=== PATIENT | male | born 1995 | race Caucasian/White ===

== ENCOUNTER 2017-12-23 12:30 | Emergency (ER) | payer SELFPAY ==
[~2017-12-23] VITALS: Ht 185.4 cm; Wt 66.2 kg
[2017-12-23 12:49] VITALS: BP 119/75; PULSE 96; RESP 16; TEMP 98.4; O2SAT 99
--- NOTE | 2017-12-23 14:03 | PD ---
HPI Chief Complaint: Complaint Time Seen by Provider: 13:54 Travel History International Travel<30 days: No Contact w/Intl Traveler<30days: No Traveled to known affect area: No History of Present Illness HPI 22-year-old male presents emergency department complaining of left testicular pain that started yesterday. Says that he worked all day, came home and stepped the garage door and is stooping motion and felt a sensation in his left testicle. At this point, says that the testicle feels aching that increases with movement decreases with rest. Says he feels like there is spaghetti and the left testicle and he noticed a bump in the area as well. He says that the pain is located mainly left testicle but occasionally radiates up the left pelvic region patient says he sexually active with one partner in the last month. He denies urinary discomfort. Denies abdominal pain. Denies nausea vomiting or diarrhea. Denies chronic medical issues medication use. Of note, patient says that he was evaluated by urgent care last week and given antibiotic. Says that he has never had an ultrasound of his testicles. Says he has chronic pain and discomfort but again has never been evaluated by urologist or with imaging studies. [facility] Past Medical History Medical History: Denies Significant Hx Diminished Hearing: No Influenza Vaccination: No ?: Not Past Surgical History Surgical History: No Previous Surgery Social History Alcohol Use: Yes Tobacco Use: Yes Allergies-Medications (Allergen,Severity, Reaction): Coded Allergies: No Known Allergies (Unverified , 12/23/17) Reported Meds & Prescriptions Reported Meds & Active Scripts Active No Active Prescriptions or Reported Medications Review of Systems Except as stated in HPI: all other systems reviewed are Neg Physical Exam Narrative GENERAL: Well-developed well-nourished in no apparent distress SKIN: Focused skin assessment warm/dry. HEAD: Atraumatic. Normocephalic. EYES: Pupils equal and round. No scleral icterus. No injection or drainage. ENT: No nasal bleeding or discharge. Mucous membranes pink and moist. NECK: Trachea midline. No JVD. CARDIOVASCULAR: Regular rate and rhythm. No murmur appreciated. RESPIRATORY: No accessory muscle use. Clear to auscultation. Breath sounds equal bilaterally. GASTROINTESTINAL: Abdomen soft, non-tender, nondistended. Hepatic and splenic margins not palpable. exam performed with nurse GENITOURINARY: Circumcised. Testes descended bilaterally without evidence of rotation. No lesions or erythema. No urethral discharge. MUSCULOSKELETAL: No obvious deformities. No clubbing. No cyanosis. No edema. NEUROLOGICAL: Awake and alert. No obvious cranial nerve deficits. Motor grossly within normal limits. Normal speech. PSYCHIATRIC: Appropriate mood and affect; insight and judgment normal. Data Data Last Documented VS Vital Signs Date Time Temp Pulse Resp B/P (MAP) Pulse Ox O2 Delivery O2 Flow Rate FiO2 12/23/17 16:05 68 16 110/74 (86) 98 Room Air 12/23/17 12:49 98.4 Orders Orders Urinalysis - C+S If Indicated (12/23/17 13:14) Us Testicles W Doppler (12/23/17 ) Labs Laboratory Tests Test 12/23/17 14:35 Urine Collection Type CLEAN CATCH Urine Color YELLOW Urine Turbidity CLEAR Urine pH 7.5 Urine Specific Millen 1.015 Urine Protein NEG mg/dL Urine Glucose (UA) NEG mg/dL Urine Ketones NEG mg/dL Urine Occult Blood NEG Urine Nitrite NEG Urine Bilirubin NEG Urine Urobilinogen 0.2 MG/DL Urine Leukocyte Esterase NEG Urine Squamous Epithelial Cells 0-5 /hpf Urine Amorphous Sediment MOD Microscopic Urinalysis Comment CULT NOT INDICATED Urine Collection Time 1435 MDM Medical Decision Making Medical Screen Exam Complete: Yes Emergency Medical Condition: Yes Differential Diagnosis Left testicular hydrocele, varicocele, epididymitis, urethritis Narrative Course 22-year-old male presents emergency department complaining of left testicular pain that started yesterday. Says that he worked all day, came home and stepped the garage door and is stooping motion and felt a sensation in his left testicle. At this point, says that the testicle feels aching that increases with movement decreases with rest. Says he feels like there is spaghetti and the left testicle and he noticed a bump in the area as well. He says that the pain is located mainly left testicle but occasionally radiates up the left pelvic region patient says he sexually active with one partner in the last month. He denies urinary discomfort. Denies abdominal pain. Denies nausea vomiting or diarrhea. Denies chronic medical issues medication use. Of note, patient says that he was evaluated by urgent care last week and given antibiotic. Says that he has never had an ultrasound of his testicles. Says he has chronic pain and discomfort but again has never been evaluated by urologist or with imaging studies. Vital signs are stable. US negative. The exam findings demonstrate asymmetric testicles in terms of color and anatomy. I believe this patient could benefit from a testicular ultrasound to rule out emergent condition such as epididymitis. Last Impressions Scrotum Ultrasound 12/23/17 0000 Signed Impressions: CONCLUSION: 1. No acute finding is identified to explain the testicular pain. 2. Bilateral testicular microlithiasis is present without intratesticular mass or other worrisome features. In the absence of any other risk factors for test icular cancer (personal history of testicular cancer, father and brother with t esticular cancer, history of cryptorchidism or maldescent, or other risk factor s) no further imaging follow-up is specifically recommended. However, consider monthly testicular self examination. If any risk factors are present consider u rology referral. Patient is strongly advised to follow-up with his primary care physician and urologist. As mentioned in the report, recommend monthly testicular examinations. He states understanding and will comply. Diagnosis Primary Impression: Testicular pain Referrals: Maverick Samson DO Primary Care Physician Urologist Additional Instructions: Follow-up with urologist as discussed. Follow-up with primary care physician as soon as possible. If your symptoms worsen return to the emergency department immediately. Scripts No Active Prescriptions or Reported Meds Disposition: 01 DISCHARGE HOME Condition: Stable Lori Lopez December 23, 2017 14:03
[2017-12-23 14:49] LABS: BILIRUBIN, URINE NEG (NEG); BLOOD, URINE NEG (NEG); GLUCOSE,URINE NEG (NEG); KETONE, URINE NEG (NEG); NITRITE,URINE NEG (NEG); PH, URINE 7.5 (5.0-8.5); URINE COLOR YELLOW (YELLW/STRAW); URINE LEUKOCYTE ESTERASE NEG (NEG)
[2017-12-23 15:12] LABS: AMORPHOUS SEDIMENT, URINE MOD; SQUAMOUS EPITHELIAL CELL URINE 0-5 /hpf (0-5)
[2017-12-23 16:05] VITALS: BP 110/74; PULSE 68; RESP 16; O2SAT 98
--- NOTE | 2017-12-23 16:12 | RADRPT ---
EXAM DATE: 12/23/2017 3:30 PM EDT AGE/SEX: 22 years / Male INDICATIONS: Testicular pain. CLINICAL DATA: This is the patient's initial encounter. Patient reports that signs and symptoms have been present for > 1 year and indicates a pain score of 3/10. MEDICAL/SURGICAL HISTORY: . Testicular pain. None. COMPARISON: No prior [facility] exams available for comparison. MEASUREMENTS (cm x cm x cm): Right Testicle:__5.3 x 3.1 x 2.3 cm Left Testicle:__4.6 x 3.3 x 2.3 cm FINDINGS: Right Testicle: Homogeneous echotexture without intra or extratesticular mass. There are innumerabl e echogenic nonshadowing foci throughout the testicle. Blood flow is symmetric and within normal limi ts. No hydrocele or varicocele. Epididymis is within normal limits. Left Testicle: Homogeneous echotexture without intra or extratesticular mass. There are innumerable echogenic foci throughout the testicle. Blood flow is symmetric and within normal limits. No hydroc cecy or varicocele. Epididymis is within normal limits. Scrotum: Within normal limits. CONCLUSION: 1. No acute finding is identified to explain the testicular pain. 2. Bilateral testicular microlithiasis is present without intratesticular mass or other worrisome fe atures. In the absence of any other risk factors for testicular cancer (personal history of testicula r cancer, father and brother with testicular cancer, history of cryptorchidism or maldescent, or othe r risk factors) no further imaging follow-up is specifically recommended. However, consider monthly t esticular self examination. If any risk factors are present consider urology referral. Electronically signed by: Daniel Parra MD 12/23/2017 4:11 PM EDT
== END 2017-12-23 16:43 | disposition home or self-care (01) ==
LOC: PHEFT 12:30
DX: N50.812 Left testicular pain (principal); Z72.0 Tobacco use
CPT/HCPCS: 76870; 81001; 93975; 99285